=== PATIENT | female | born 1950 | race Asian ===

== ENCOUNTER 2018-11-12 07:54 | Day surgery (SDC) | payer OTHER ==
[~2018-11-12 07:54] MED LIST: ROCURONIUM 50 MG INJ; VANCOMYCIN HCL 2 GM in SOD CHLORIDE 0.9% 500 ML IVPB
[2018-11-12] MEDS: SOD CHLORIDE 0.9% 1,000 ML IV (11:45)
[2018-11-12] MEDS ORDERED: HYDROmorphONE 1 MG/5 ML IV SYRINGE IV ×2 (12:00)
[2018-11-12] MEDS ORDERED: OXYCODONE/ACETAMINOPHEN (5/325) TAB PO (12:00)
[2018-11-12] MEDS ORDERED: ALBUTEROL 0.083% (NEB) 2.5 MG/3 ML AMP HHN (12:00)
[2018-11-12] MEDS ORDERED: LABETALOL HCL 20MG INJ IV (12:00)
[2018-11-12] MEDS ORDERED: hydrALAzine 20 MG INJ IV (12:00)
[2018-11-12] MEDS ORDERED: PROPOFOL 20 ML (12:05)
[2018-11-12] MEDS ORDERED: CLINDAMYCIN 900 MG/D5W (PMX) 50 ML IVPB (12:05)
[2018-11-12] MEDS ORDERED: LIDOCAINE 2% (SDV) 5 ML INJ (12:05)
[2018-11-12] MEDS ORDERED: SUCCINYLCHOLINE CHLORIDE 100 MG/5 ML SYG IV (12:05)
[2018-11-12] MEDS ORDERED: FAMOTIDINE 20 MG INJ (12:06)
[2018-11-12] MEDS ORDERED: ONDANSETRON 4 MG INJ (12:06)
[2018-11-12] MEDS ORDERED: FENTAnyl 50 MCG/ML VIAL (12:06)
[2018-11-12] MEDS ORDERED: METOCLOPRAMIDE 10 MG INJ (12:06)
[2018-11-12] MEDS ORDERED: DEXAMETHASONE 4 MG/ML 5 ML INJ (14:06)
[2018-11-12] MEDS ORDERED: PHENYLephrine (100 MCG/ML) 10ML SYG (14:19)
[2018-11-12] MEDS ORDERED: SUGAMMADEX SODIUM 200 MG/2 ML VIAL IV (14:28)
[2018-11-12] MEDS ORDERED: HYDROCODONE/APAP (7.5/325) TAB PO (15:00)
[2018-11-12] MEDS: ONDANSETRON 4 MG INJ IV (15:28)
[2018-11-12] MEDS: OXYCODONE/ACETAMINOPHEN (5/325) TAB PO (15:29)
[2018-11-12] MEDS: HYDROmorphONE 1 MG/5 ML IV SYRINGE IV (15:29)
== END 2018-11-12 17:10 | disposition home or self-care (01) ==
LOC: SDS 07:54
DX: D24.2 Benign neoplasm of left breast (principal); N60.32 Fibrosclerosis of left breast; E11.9 Type 2 diabetes mellitus without complications; E78.5 Hyperlipidemia, unspecified; J45.909 Unspecified asthma, uncomplicated
CPT/HCPCS: 19301; 82962; 88307